=== PATIENT | male | born 1980 | race Caucasian/White ===

== ENCOUNTER 2017-02-17 11:58 | Day surgery (SDC) | payer OTHER ==
[2017-02-17] VITALS (9 sets, daily range): BP systolic 109–136; BP diastolic 58–80; PULSE 61–81; RESP 10–22; O2SAT 95–99
[~2017-02-17] VITALS: Ht 172.7 cm; Wt 82.4 kg
[~2017-02-17 11:58] MED LIST: CeFAZolin Inj 2 GM in IV Premix 1 EACH IV ONE; IBUP800T28 PO; OXYC1TAB24 PO
[2017-02-17] MEDS ORDERED: Ondansetron 2 mg/mL 2 mL Inj ONE (11:59)
[2017-02-17] MEDS ORDERED: fentaNYL-PF 50 mCg/mL 2 mL Inj ONE (11:59)
[2017-02-17] MEDS ORDERED: MetoCLOpramide 5 mg/mL 2 mL Inj ONE (11:59)
[2017-02-17] MEDS ORDERED: Dexamethasone 4 mg/mL Inj ONE (11:59)
[2017-02-17] MEDS ORDERED: Propofol 10,000 mCg/mL 20 mL Inj ONE (11:59)
[2017-02-17] MEDS ORDERED: Ketamine 10 mg/mL 20 mL Inj ONE (11:59)
[2017-02-17] MEDS ORDERED: CeFAZolin Inj 2 gm / 50mL D5W IV ONE (12:28)
[2017-02-17] MEDS: Lactated Ringer's 1,000 ML IV SCH ×2 (12:51→16:10)
[2017-02-17] MEDS ORDERED: HYDROmorphone 1 mg/mL Inj ONE (13:28)
[2017-02-17] MEDS ORDERED: Lactated Ringer's 500 ML IV PRN (15:50)
[2017-02-17] MEDS ORDERED: MetoCLOpramide 5 mg/mL 2 mL Inj IVPUSH PRN (15:50)
[2017-02-17] MEDS ORDERED: Lactated Ringer's 1,000 ML IV SCH (15:50)
[2017-02-17] MEDS ORDERED: Phenylephrine 10,000 mCg/mL Inj IVPUSH PRN (15:50)
[2017-02-17] MEDS ORDERED: HYDROmorphone 1 mg/mL Inj IVPUSH PRN (15:50)
[2017-02-17] MEDS ORDERED: EPHEDrine Sulfate 50 mg/mL Inj IVPUSH PRN (15:50)
[2017-02-17] MEDS ORDERED: fentaNYL-PF 50 mCg/mL 2 mL Inj IVPUSH PRN (15:50)
[2017-02-17] MEDS ORDERED: Ondansetron 2 mg/mL 2 mL Inj IVPUSH PRN (15:50)
[2017-02-17] MEDS ORDERED: Dexamethasone 4 mg/mL Inj IVPUSH PRN (15:50)
--- NOTE | 2017-02-17 15:52 | PCM.HPANE ---
Patient Data Surgeon Admitting Provider: Attending Provider:Gurjit Chapman DPM Primary Care Physician:Reza Cantu MD Other Provider:[facility] Reason for Visit Post-Traumatic Arthritis Of Left Ankle Ht/WT & BMI Height (Feet): 5 Height (Inches): 8.00 Weight (Kilograms): 82.4 Body Mass Index 27.00 Allergies Coded Allergies: No Known Allergies (Unverified Allergy, Unknown, 02/14/14) Past Anesthesia History Anesthesia History: Positive for:: Anesthesia Reactions (post op nausea), Fam Anesthesia Reaction (grandmother has post op nausea as well), Denies:: Fam Malignant Hypertherm, Malignant Hyperthermia Diabetes History Hx Diabetes?: No MRSA MRSA: No Medications Home Meds Incl Beta Jared: No Reported Medications oxyCODONE-Acetaminophen 5-325 mg 1 Each Tablet1 Tab PO Q6H PRN For Pain Ref 0 02/15/17 Ibuprofen 800 Mg [id number] Mg PO TID PRN For Pain Ref 0 02/15/17 History History of ENT Problems?: No HEENT History: Denies:: Abnormal Airway Cataracts Difficult Intubation Dysphagia Glaucoma Hearing Problem Sinus Problem TMJ Denture Type: None Teeth Condition: Within Normal Limits Hx of Heart Problems?: No Cardiovascular History: Denies:: Hypertension Hx of Respiratory Problem?: No Respiratory History: Denies:: Oxygen Administration Use of C-PAP Machine Hx Neurologic Problems?: No Hx of GI Problems?: No Hx of Problems?: No Male Hx: Denies:: Prostate Problems Skin History: Denies:: History Skin Disorders? Pressure Ulcers Hx Musculoskeletal Problems?: Yes Musculoskeletal History: Positive for:: Back Injury (hx of C6 neck fx after logging accident) Musculoskeletal Trauma (left ankle talonavicular joint current admission problem) Denies:: Joint Replacement Hx of Psycho/Social Problems?: No Hx Surgeries?: Yes (C6 fusion, right shoulder repair, left ankle ) Hx Any Other Health Problems?: Yes Other History: Positive for:: Hospitalization (orthopedic injury post logging accident) Denies:: Cancer Thyroid Disease Hx Diabetes: No Hx Alcohol Use: NoHx Substance Use: No (prior hx in EMR of cocaine/meth/ opiates- 2010. family denies use now)Have You Smoked inLast 12 mo: No Stop/Bang Treated for Sleep Apnea?: No Do You Have a CPAP Machine?: No S-Snoring: Do You Snore Loudly: No T-Tired: feel tired, fatigued: No O-Obsered: Observed not breath: No P-Blood Pressure: treated: No B- Body Mass Index > 35 kg/m2: No A- Age over 50: No N- Neck Large Circumference: No G- Gender Male: Yes PARI Total Score: 1 PARI Risk Assessment: Low Risk, <3 Yes Risk Assessment Category Category 1A: Patient has history of documented sleep apnea, and HAS NOT received any narcotic, sedative or anesthesia administration during this stay. Category 1B: Patient has history of documented sleep apnea, and HAS received any narcotic , sedative or anesthesia administration during this stay Category 2: Patient has SUSPECTED Obstructive Sleep Apnea, and HAS received any narcotic , sedative or anesthesia administration during this stay. Category 3: Patient has SUSPECTED Obstructive Sleep Apnea and HAS NOT received narcotic, sedative or anesthesia administration during this stay. Category 4: Outpatient in Procedural Areas with known sleep apnea or who screen positive for High Risk via the STOP/BANG questionnaire. Exam Exam Vital Signs Vital Signs Date Time Temp Pulse Resp B/P Pulse Ox O2 Delivery O2 Flow Rate FiO2 02/17/17 12:52 36.3 68 16 136/75 98 Room Air General Appearance: Oriented X3 HEENT/AIRWAY: MP 2 Lungs: Normal Air Movement Heart: Regular Rate/Rhythm Meds/Labs/Diagnostics Admission Meds Current Medications Lactated Ringer's (Lr) 1,000 ml @ 120 mls/hr Q8H20M IV Last administered on 12:51; Start 02/17/17 at 05:00; Stop 02/17/17 at 13:19; Status DC Hydromorphone HCl (Dilaudid Inj) 1 mg STK-MED ONCE .ROUTE Last administered on 02/17/17 13:36; Start 02/17/17 at 13:28; Stop 02/17/17 at 13:31; Status DC Plan Impression Patient chart reviewed, patient interviewed and anesthestic plan with risks, benefits, and alternatives discussed, and informed consent obtained. ASA Physical Status: ASA1 Normal Healthy Anesthetic Plan: GA Bene/Risks/Altern/Consents: Yes HP Complete Prior to Induction: Yes Juan Nesbitt MD Feb 17, 2017 15:52
[2017-02-17] MEDS ORDERED: Lidocaine 2%-Epi 1:100,000 20 mL Inj NERVEBLOCK ONE (16:25)
[2017-02-17] MEDS ORDERED: Bupivacaine-MPF 0.5% W/EPI 30 mL Inj INFILTRATE ONE (16:35)
[2017-02-17] MEDS ORDERED: oxyCODONE-Acetamin 5-325 mg Tablet PO PRN (18:00)
--- NOTE | 2017-02-20 08:10 | PCM.ANEP1 ---
Post Anesthesia PACU Phase 1 Assessment Anesthetic Administered: GA Level of Alertness: Awake, talking Pain: No Nausea or Vomiting: No CV Function & Hydration Stable: Yes Airway Device: Oralpharangeal Airway Lungs: Normal Air Movement PACU Phase 2 Assessment Patient Instructions Provided: N/A Juan Nesbitt MD Feb 20, 2017 08:09
--- NOTE | 2017-04-17 08:26 | PCM.PODPO ---
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 All preoperative comorbidities and allergies were identified and thoroughly discussed. The patient was transported into the operating room and placed on the operating room table in the normal supine position. The patient was then prepped and draped in the normal aseptic technique. Attention was first paid to the dorsal medial aspect of the left talonavicular joint. A linear incision approximately 5 cm in length was made the #15 blade. Once through the initial layer of skin all subcutaneous neurovascular structures were identified and retracted out of the surgical field. Blunt dissection was carried down through subcutaneous tissue with a Metzenbaum scissor. The tibialis anterior tendon was identified and retracted laterally. Deep fascia and capsular tissue was identified. A fresh #15 blade was utilized to incise through capsular tissue exposing the dorsomedial aspect of the talus and navicular as well as the talonavicular joint. Capsular tissue was reflected both laterally and medially exposing the entirety of the talonavicular joint. Guidepin was inserted into the talus and navicular and a cannulated distractor was then utilized to provide distraction of the talonavicular joint. Inspection of the talonavicular joint revealed a large osteochondral defect of the central portion of the left talus with exposed subchondral bone. Surrounding articular cartilage was found to be severely degenerated. Degeneration of articular cartilage on the opposing aspect of the navicular was also noted. A large curet was utilized to remove the remainder of the articular cartilage from the surface of the talus as well as the navicular exposing subchondral bleeding bone. A 2.0 mm drill was then utilized to drill subchondrally on the entirety of the surface of the talus and navicular articulation. A cannulated distractor was then removed and temporary K wire fixation was placed across the talonavicular joint utilizing intraoperative C-arm x-ray. 24.0 cannulated partially-threaded screws were then inserted across the talonavicular joint utilizing direct visualization as well as intraoperative C-arm x-ray to aid in proper screw placement. Compression of the joint was noted. Care was taken to ensure no distraction of the lateral aspect of the talonavicular joint occurred with the medial fixation. This wound was then closely flushed with large amounts of normal saline. Closure was performed in layered fashion utilizing number 3. 0 Vicryl for deep closure and subcutaneous closure and 3. 0 Prolene was utilized for skin closure. This wound was then dressed with Adaptic sterile 4 x 4 gauze Kerlix and the patient was placed into a mildly compressive Barksdale compression dressing with posterior splint. No complications occurred during this procedure the patient was awoken by anesthesia and transported out of the operating room. Grafts, Implants: Implants-See Implant Record Complications There were no periprocedural complications identified. Condition Stable Anesthetic Administered: GA Catheters: None Output, Estimated Blood Loss: 50 Blood Admin during surgery: No Surgical Cast or Splint: Well-padded Short Leg Splint Surgical Specimen Removed: No Specimen sent to Pathology: No Post Operative Plan Ice and elevate left lower extremity Nonweightbearing left lower extremity Follow-up in 1 week Gurjit Chapman DPM Apr 17, 2017 08:26
== END 2017-02-17 23:59 | disposition home or self-care (01) ==
LOC: SAS 11:58
PROVIDERS: ATTEND Podiatrist Foot & Ankle Surgery
DX: M19.172 Post-traumatic osteoarthritis, left ankle and foot (principal); M95.8 Other specified acquired deformities of musculoskeletal system; V29.9XXS Motorcycle rider (driver) (passenger) injured in unspecified traffic accident, sequela; Y92.9 Unspecified place or not applicable; Z87.891 Personal history of nicotine dependence; Z87.898 Personal history of other specified conditions
CPT/HCPCS: 28715; 76001; C1713; J0690; J1100; J1170; J2250; J2405; J2765; J3010; J7120